=== PATIENT | female | born 1935 | race Caucasian/White ===

== ENCOUNTER 2019-02-03 14:24 | Outpatient (CLI) | payer OTHER | END 2019-02-03 14:37 | disposition home or self-care (01) | LOC: RAD 14:24 | DX: Z12.31 Encounter for screening mammogram for malignant neoplasm of breast (principal); Z87.898 Personal history of other specified conditions; N64.89 Other specified disorders of breast ==

== ENCOUNTER 2019-09-02 13:44 | Emergency (ER) | payer OTHER ==
[~2019-09-02] VITALS: Ht 154.9 cm; Wt 61.2 kg
[2019-09-02] MEDS ORDERED: KETO10TA2 PO (17:47)
== END 2019-09-02 18:13 | disposition home or self-care (01) ==
LOC: ER 13:44
DX: M54.5 Low back pain (principal); I10 Essential (primary) hypertension

== ENCOUNTER → 2019-09-16 | Outpatient (CLI) | payer OTHER ==
[~2019-09-16] MED LIST: KETO10TA2 PO
== END | disposition home or self-care (01) ==
LOC: RAD 15:46
DX: M43.06 Spondylolysis, lumbar region (principal)